=== PATIENT | female | born 1935 | race Caucasian/White ===

== ENCOUNTER 2022-09-18 05:01 | Emergency (ER) | payer MEDICARE, SELFPAY ==
--- NOTE | ~2022-09-18 | XR_ITS ---
EXAMINATION: XR hip BI 2V w AP pelvis DATE: 09/18/2022 06:22 INDICATION: Pelvic pain. Fall. TECHNIQUE: An anteroposterior view of the pelvis and 2 views of each hip were obtained. COMPARISON: None. FINDINGS: There is lumbar dextroscoliosis and severe spondylosis. No fracture. There is mild osteoart hritis of the hips. IMPRESSION: 1. Mild osteoarthritis of the hips. Reviewed, dictated and finalized at location A. MENTATIONIST
--- NOTE | ~2022-09-18 | CT_ITS ---
EXAMINATION: CT cervical spine wo con DATE: 09/18/2022 05:49 INDICATION: Head injury. Neck pain. TECHNIQUE: Computed tomography (CT) of the cervical spine was performed without intravenous contrast. Automated exposure control and iterative reconstruction technique were employed. The dose-length pro duct was 120.80 mGy-cm. COMPARISON: None FINDINGS: There is mild scarring at the lung apices. There is kyphosis of cervical spine. There is 6 degrees levocurvature of cervical spine. Vertebral body heights are normal. There is mildly decreased disc height at C3-C4 and C4 on C5, moderately decreased disc height at C5-C6, and severely decreased disc height at C6-C7 and C7-T1. The following disc levels are specifically discussed: C2-C3: There is mild right uncovertebral joint osteoarthritis. There is severe bilateral facet joint osteoarthritis. There is mild right neural foraminal stenosis. There is no central canal stenosis. C3-C4: There is mild bilateral uncovertebral joint osteoarthritis. There is severe bilateral facet tomas int osteoarthritis. There is mild bilateral neural foraminal stenosis. There is no central canal sten osis. C4-C5: There is mild left uncovertebral joint osteoarthritis. There is ankylosis of right uncovertebr al joint with moderate hypertrophy. There is mild left facet joint osteoarthritis. There is ankylosis of right facet joint with moderate hypertrophy. There is mild right neural foraminal stenosis. There is no central canal stenosis. C5-C6: There is severe right and moderate left uncovertebral joint osteoarthritis. There is mild righ t facet joint osteoarthritis. There is mild bilateral neural foraminal stenosis. There is mild centra l canal stenosis. C6-C7: There is severe right uncovertebral joint osteoarthritis. There is ankylosis of left facet hannah nt with mild hypertrophy. There is no facet joint osteoarthritis. There is mild bilateral neural fora néstor stenosis. There is mild central canal stenosis. C7-T1: There is severe bilateral uncovertebral joint osteoarthritis. There is mild bilateral facet tomas int osteoarthritis. There is mild bilateral neural foraminal stenosis. There is no central canal sten osis. IMPRESSION: 1. No fracture. 2. Severe cervical spondylosis. Reviewed, dictated and finalized at location A. CTOR DIGITAL
--- NOTE | ~2022-09-18 | CT_ITS ---
EXAMINATION: CT brain wo con DATE: 09/18/2022 05:49 INDICATION: Head injury. TECHNIQUE: Computed tomography (CT) of the head was performed without intravenous contrast. The mA wa s adjusted according to patient size. Iterative reconstruction technique was employed. The dose-lengt h product was 605.33 mGy-cm. COMPARISON: None FINDINGS: There are scattered areas of low attenuation in the cerebral white matter. There is no intr acranial hemorrhage, acute infarction, or abnormal intracranial mass lesion. The ventricles are shauna l in size. The orbits are normal. There is mild mucosal thickening in the paranasal sinuses. The mast oid air cells are normal. There is right lateral scalp soft tissue swelling. IMPRESSION: 1. Moderate nonspecific cerebral white matter disease, which likely represents chronic small vessel i schemic disease. Reviewed, dictated and finalized at location A. RUMENT CALIBRATOR IMPRESSION: 1. Moderate nonspecific cerebral white matter disease, which likely represents chronic small vessel ischemic disease.
--- NOTE | ~2022-09-18 | XR_ITS ---
EXAMINATION: XR knee LT min 4V DATE: 09/18/2022 06:22 INDICATION: Left knee pain. TECHNIQUE: 4 views of left knee were obtained. COMPARISON: None. 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 No periprosthetic lucen cy to suggest loosening or infection. No fracture. There are tiny osteophytes of patella. No knee hannah nt effusion. IMPRESSION: 1. 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 Reviewed, dictated and finalized at location A. E EXPANDER
--- NOTE | ~2022-09-18 | XR_ITS ---
EXAMINATION: XR chest 1V DATE: 09/18/2022 06:22 INDICATION: Fall. Neck pain. TECHNIQUE: A single frontal view of the chest was obtained. COMPARISON: None. FINDINGS: Calcified pulmonary nodules and calcified hilar lymph nodes are consistent with old granulo matous disease. No pleural effusion or pneumothorax. The heart size is normal. There are surgical cli ps in right abdomen. IMPRESSION: 1. No acute cardiopulmonary disease. Reviewed, dictated and finalized at location A. ESTATE TRANSACTION COORDINATOR
--- NOTE | ~2022-09-18 | XR_ITS ---
EXAMINATION: XR hand RT min 3V DATE: 09/18/2022 06:22 INDICATION: Right hand pain. TECHNIQUE: 3 views of right hand were obtained. COMPARISON: None. FINDINGS: Bone alignment is normal. No fracture. There is moderate osteoarthritis of first carpometac arpal joint, third proximal interphalangeal joint, and second and third distal interphalangeal joints . IMPRESSION: 1. Polyarticular osteoarthritis. Reviewed, dictated and finalized at location A. ATRIC DENTIST
[2022-09-18 05:06] VITALS: BP 155/72; PULSE 62; RESP 20; TEMP 36.5; O2SAT 97
--- NOTE | 2022-09-18 05:35 | PC.NURSE ---
Pt to ED via EMS from [facility] after a witnessed fall at the vest front presser. Pt fell onto her butt and hit her head on the carpet. No LOC. Pt c/o neck pain to EMS so c-collar was applied on scene. Pt is alert to self and is at mental status baseline. She has an approx 1cm laceration to right posterior scalp. Unknown if pt takes blood thinners. No med list sent and pt does not know her meds. Wound cleansed with normal saline and temporary gauze dressing applied and secured with marialuisa wrap. Pt's speech is clear, she moves all extremities equally, and follows commands.
[2022-09-18 05:41] LABS: Basophils Percent Auto 0.6 % (0.2-1.2); Eosinophils Absolute Auto 0.1 K/mm3 (0-0.3); Eosinophils Percent Auto 1.2 % (0-4.4); Hematocrit 38.3 % (37.0-47.0); Hemoglobin 12.2 g/dL (12.0-15.0); Immature Granulocyte Absolute 0.03 K/mm3 (0.00-0.031); Immature Granulocyte Percent A 0.6 % (0-0.5); Lymphocytes Absolute Auto 1.78 K/mm3 (0.9-3.2); Mean Corpuscular HGB Conc 31.9 g/dl (32-36); Mean Corpuscular Hemoglobin 33.4 pg (26-34); Mean Corpuscular Volume 104.9 fl (80-100); Mean Platelet Volume 10.8 fl (7.4-10.4); Monocytes Absolute Auto 0.4 K/mm3 (0.1-0.6); Monocytes Percent Auto 7.9 % (2.6-8.5); Neutrophils Absolute Auto 2.8 K/mm3 (1.3-6.7); Neutrophils Percent Auto 54.7 % (45.5-73.1); Platelet Count Result 159 k/mm3 (150-375); Red Blood Count 3.65 M/mm3 (4.2-5.4); Red Cell Distribution Width 14.1 % (11.5-14.5); White Blood Count 5.1 K/mm3 (4.5-10.0)
--- NOTE | 2022-09-18 05:49 | ED.FALL ---
HPI - Fall General Chief Complaint: Fall Stated Complaint: fall head trauma Time Seen by Provider: 09/18/22 05:04 Source: patient, EMS and RN notes reviewed Mode of arrival: EMS Limitations: dementia History of Present Illness HPI Narrative: This is an 87 year old female with history of dementia who presents from a facility for evaluation of a head injury. EMS reports that staff heard patient walking around so they heard her fall. They deny LOC but patient does have hematoma to her posterior scalp. EMS also reports that patient was complaining mild neck soreness so she was placed in c collar. Patient is oriented x 2 and she is at her baseline mental status. PAtient's family reports patient takes eliquis for afib. PAtient is only complaining of right finger pain. She denies headache, dizziness, nausea, chest pain or abdominal pain Related Data Allergies Allergy/AdvReac Type Severity Reaction Status Date / Time epinephrine Allergy Unknown Verified 09/18/22 06:26 latex Allergy Unknown Verified 09/18/22 06:26 oxycodone Allergy Unknown Verified 09/18/22 06:26 Penicillins Allergy Unknown Verified 09/18/22 06:26 pseudoephedrine Allergy Unknown Verified 09/18/22 06:26 [From [facility]] Review of Systems Constitutional: Constitutional: Denies weakness Cardiovascular: Cardiovascular: Denies syncope, Denies rapid heart rate, Denies irregular heart rhythm, Denies leg edema and Denies dyspnea Respiratory: Respiratory: Denies chest congestion, Denies hemoptysis, Denies excessive phlegm production and Denies dyspnea Gastrointestinal: Gastrointestinal: Denies abdominal pain, Denies hematochezia, Denies diarrhea and Denies vomiting Genitourinary: Genitourinary: Denies hematuria and Denies dysuria Musculoskeletal: Musculoskeletal: Reports arthralgias, Denies joint swelling, Denies loss of height and Denies muscle weakness Neurologic: Denies syncope, Denies focal weakness and Denies weakness [facility] Past Medical History Medical History (Updated 09/18/22 @ 07:03 by Sydnee Hemphill MD) Afib Chronic anticoagulation Exam Const: General: no acute distress and alert HENMT: Head: hematoma and laceration (right posterior hematoma with 2 cm laceration) Ears: external ears normal Face/Nose/Sinus: Normal external nose present Face and sinus: normal facial exam Throat: posterior oropharynx normal Eyes: Pupils: Equal, round and reactive pupils present EOM: EOMs intact bilaterally Neck: Other: in c colllar Chest: Chest palpation & inspection: normal inspection of the chest and no tenderness Resp: Effort & Inspection: normal respiratory effort Auscultation: clear to auscultation bilaterally Cardio: Rate: regular rate Rhythm: abnormal rhythm Heart sounds: no murmurs GI: GI Palp: Yes Soft to palpation, No Tenderness to palpation present (GI), No Guarding due to palpation present (GI) and No Rigid due to palpation Auscultation: normal bowel sounds Back/Spine/Pelvis: Cervical Spine: collar present Skin: General skin exam: normal color Rashes: no rashes Neuro: General: moves all extremities, no meningeal signs, no focal motor deficits and CN's II-XI intact bilaterally Extrem: General: normal to inspection Psych: Mental Status: mental status grossly normal Affect: normal affect Attitude: cooperative Course Vital Signs Vital signs: Vital Signs Temperature 97.7 F 09/18/22 05:06 Pulse Rate 62 09/18/22 05:06 Respiratory Rate 20 09/18/22 05:06 Blood Pressure 155/72 H 09/18/22 05:06 Pulse Oximetry 97 09/18/22 05:06 Oxygen Delivery Room Air 09/18/22 05:06 Temperature 97.7 F 09/18/22 05:06 Pulse Rate 67 09/18/22 06:19 Respiratory Rate 20 09/18/22 06:19 Blood Pressure 182/84 H 09/18/22 06:19 Pulse Oximetry 100 09/18/22 06:19 Oxygen Delivery Room Air 09/18/22 05:06 Procedures Laceration Laceration 1: Date: 09/18/22 Time: 06:59 Site: scalp Siz
[2022-09-18 05:53] LABS: INR 1.3; Prothrombin Time 15.8 Seconds (11.1-14.7)
[2022-09-18 05:55] LABS: Partial Thromboplastin Time 36.7 SECONDS (22.3-36.8)
[2022-09-18 06:01] LABS: Alanine Aminotransferase 14 U/L (6-35); Albumin Level 3.8 g/dL (3.5-5.1); Alkaline Phosphatase 64 U/L (38-126); Anion Gap 0 mmol/L (8-16); Aspartate Amino Transferase 22 U/L (14-36); Bilirubin,Total 0.7 mg/dL (0.2-1.3); Blood Urea Nitrogen 20 mg/dL (7-17); Calcium 8.7 mg/dL (8.4-10.2); Carbon Dioxide 30 mmol/L (22-30); Chloride 104 mmol/L (98-107); Estimated CRCL calculation 51 ml/min; Estimated Glomerular Filt Rate > 60; Glucose 88 mg/dL (65-110); Potassium 4.2 mmol/L (3.4-5.0); Sodium 134 mmol/L (137-145)
[2022-09-18 06:19] VITALS: BP 182/84; PULSE 67; RESP 20; O2SAT 100
--- NOTE | 2022-09-18 06:25 | PC.NURSE ---
C-collar removed at this time
--- NOTE | 2022-09-18 06:26 | PC.NURSE ---
Called [facility] to obtain allergy list.
--- NOTE | 2022-09-18 06:36 | ECG_ITS ---
Measurements Intervals [place] Rate: 67 P: 64 AK: 171 QRS: 56 QRSD: 77 T: 53 QT: 413 QTc: 437 Interpretive Statements SINUS RHYTHM WITH MARKED SINUS ARRHYTHMIA LOW QRS VOLTAGE IN EXTREMITY LEADS [QRS DEFLECTION < 0.5 mV IN LIMB LEADS] ABNORMAL ECG NO PREVIOUS ECG AVAILABLE FOR COMPARISON Electronically Signed On 10-09-2022 14:26:15 STRUCTURAL ENGINEER by Anthony Palencia M.D.
--- NOTE | 2022-09-18 07:08 | PC.NURSE ---
Nurse report given to Holly WILSON
[2022-09-18 07:41] VITALS: BP 162/88; PULSE 61; RESP 16; O2SAT 99
== END 2022-09-18 07:42 ==
PROVIDERS: Emergency Provider General Practice; PCP Emergency Medicine
DX: S01.01XA Laceration without foreign body of scalp, initial encounter (principal); F03.90 Unspecified dementia, unspecified severity, without behavioral disturbance, psychotic disturbance, mood disturbance, and anxiety; I48.91 Unspecified atrial fibrillation; Z79.01 Long term (current) use of anticoagulants; R90.82 White matter disease, unspecified; Z96.652 Presence of left artificial knee joint; M47.812 Spondylosis without myelopathy or radiculopathy, cervical region; M16.0 Bilateral primary osteoarthritis of hip; M19.041 Primary osteoarthritis, right hand; M18.9 Osteoarthritis of first carpometacarpal joint, unspecified; W19.XXXA Unspecified fall, initial encounter
CPT/HCPCS: 12001; 36415; 70450; 71045; 72125; 73130; 73521; 73564; 80053; 85025; 85610; 85730; 93005; 99284

== ENCOUNTER 2022-11-08 13:48 | Emergency (ER) | payer MEDICARE, SELFPAY ==
[2022-11-08] VITALS (15 sets, daily range): BP systolic 116–139; BP diastolic 51–68; PULSE 63–77; RESP 16; TEMP 36.9; O2SAT 97–100
--- NOTE | ~2022-11-08 | XR_ITS ---
EXAMINATION: XR forearm RT 2V DATE: 11/08/2022 14:10 INDICATION: Right forearm injury and swelling. TECHNIQUE: 2 views of right forearm were obtained. COMPARISON: None. FINDINGS: Bone alignment is normal. No fracture. There is moderate osteoarthritis of triscaphe joint and first carpometacarpal joint. No elbow joint effusion. IMPRESSION: 1. No fracture. Reviewed, dictated and finalized at location A. INTERFACE ANALYST IMPRESSION: 1. No fracture.
--- NOTE | ~2022-11-08 | CT_ITS ---
EXAMINATION: CT forearm RT wo con DATE: 11/08/2022 15:07 INDICATION: Right forearm hematoma TECHNIQUE: Computed tomography (CT) of the right forearm was performed without intravenous contrast. The dose-length product (DLP) was 956.40 mGy-cm. Automated exposure control and iterative reconstruct ion technique were employed. COMPARISON: None FINDINGS: There is diffuse ventral soft tissue swelling of the forearm. There is an approximately 2.3 x 2.0 x 4.8 cm hematoma in the subcutaneous tissues overlying the distal third of the forearm. No un derlying osseous abnormality is identified. IMPRESSION: 1. Soft tissue swelling and hematoma of the right forearm without acute osseous abnormality. Reviewed, dictated and finalized at location F. EL PAINTER
--- NOTE | 2022-11-08 13:58 | ED.EXTPRO ---
HPI - Extremity Problem General Chief complaint: Extremity Problem,Nontraumatic Stated complaint: right wrist swelling Time Seen by Provider: 11/08/22 13:49 History of Present Illness HPI Narrative: Patient is a 7-year-old female sent in from the nursing facility due to evaluation of right forearm bruising and swelling. This was noticed today during the past. Patient denies significant pain at the wrist and denies obvious injury although she does have a history of dementia. No decreased range of motion of the wrist. She does take Eliquis. Related Data Allergies Allergy/AdvReac Type Severity Reaction Status Date / Time epinephrine Allergy Unknown Verified 09/18/22 06:26 latex Allergy Unknown Verified 09/18/22 06:26 oxycodone Allergy Unknown Verified 09/18/22 06:26 Penicillins Allergy Unknown Verified 09/18/22 06:26 pseudoephedrine Allergy Unknown Verified 09/18/22 06:26 [From [facility]] Review of Systems Review of Systems: Gen: Denies fevers or chills Eyes: Denies eye pain or visual change ENT: Denies congestion Respiratory: Denies shortness of breath or cough CV: Denies chest pain or palpitations GI: Denies abdominal pain nausea, emesis or diarrhea denies burning, urgency, frequency or hematuria Musculoskeletal: Reports right wrist pain Neuro: Denies numbness, tingling, weakness or focal weakness Skin: Reports bruising and swelling at the wrist Except as documented, all other systems reviewed and negative PMFSH Past Medical History Medical History Afib Chronic anticoagulation Exam Narrative: APPEARANCE: Well appearing, no pain in distress, well-nourished. Head: Normocephalic and atraumatic. EYES: PERRLA/EOMI, conjunctivae clear NOSE: No nasal drainage EARS: External ear normal in appearance THROAT: Oropharynx is clear. Mucous membranes are moist. NECK: Supple. No adenopathy, no masses. RESPIRATORY: Airway patent, respirations nonlabored. Clear to auscultation bilaterally, no rales, rhonchi, wheezing. CARDIOVASCULAR: Regular rate and rhythm without murmurs, rubs, or gallops. ABDOMINAL: Normoactive bowel sounds. Soft, nontender, nondistended. No rebound tenderness or guarding. MUSCULOSKELETAL: Patient has deeply purple discoloration to a circumferential area of her right forearm with a large hematoma palpated at the dorsum of her forearm that is tender to palpation. Full range of motion of the wrist. NEURO: Normal speech. No focal neurologic deficits. SKIN: Skin is warm and dry. No rashes. PSYCHIATRIC: Normal affect/mood.. Course Vital Signs Vital signs: Vital Signs Temperature 98.4 F 11/08/22 13:48 Pulse Rate 63 11/08/22 13:48 Respiratory Rate 16 11/08/22 13:48 Blood Pressure 116/57 L 11/08/22 13:48 Pulse Oximetry 97 11/08/22 13:48 Temperature 98.4 F 11/08/22 13:48 Pulse Rate 74 11/08/22 14:32 Respiratory Rate 16 11/08/22 14:32 Blood Pressure 122/58 L 11/08/22 14:32 Pulse Oximetry 100 11/08/22 14:32 MDM - Extremity (Nontraumatic) MDM Narrative Medical decision making narrative: 87-year-old female here for evaluation of a hematoma to her right forearm that has been there for an unknown amount of time, sent to the nursing facility when he noticed it today. She does have a large hematoma on exam but no signs of neurovascular compromise distal to the area. Plain films of the forearm with no acute findings or fractures and CT chest confirms findings of the hematoma without any underlying bony disease. Patient herself has no complaints. She was placed in Martin wrap, advised icing as needed. Discharge Plan Discharge Clinical Impression: Traumatic hematoma of right forearm Patient Disposition: [facility] Condition: Stable Instructions: Antibiotic Form, Hematoma (ED) Additional Instructions: The x-ray shows no fractures and CT of your forearm shows a hematoma. Please use com
== END 2022-11-08 17:18 ==
PROVIDERS: Emergency Provider Physician Assistant; PCP Emergency Medicine
DX: S50.11XA Contusion of right forearm, initial encounter (principal); I48.91 Unspecified atrial fibrillation; Z79.01 Long term (current) use of anticoagulants; X58.XXXA Exposure to other specified factors, initial encounter
CPT/HCPCS: 73090; 73200; 99284

== ENCOUNTER 2023-01-03 05:12 | Emergency (ER) | payer MEDICARE, SELFPAY ==
[2023-01-03] VITALS (9 sets, daily range): BP systolic 106–142; BP diastolic 45–70; PULSE 72–97; RESP 14–16; TEMP 36.3–37.3; O2SAT 94–100
--- NOTE | ~2023-01-03 | XR_ITS ---
EXAMINATION: XR ankle RT min 3V DATE: 01/03/2023 07:05 INDICATION: Right ankle pain and hematoma. All TECHNIQUE: Anteroposterior, oblique, mortise, and lateral views of the right ankle were obtained. COMPARISON: None. FINDINGS: Alignment is normal. There is indistinct cortical margin at the tip of the medial malleolus with a co uple tiny adjacent flecks of calcium consistent with a tiny avulsion fracture at the insertion of the deltoid ligament. Associated soft tissue swelling about the medial ankle and medial aspect of the di stal calf. No other fractures identified. Mild osteoarthritis at a few of the joints in the mid and f orefoot. No ankle joint effusion. IMPRESSION: 1. Tiny flake-like cortical avulsion fracture at the tip of the medial malleolus. Reviewed, dictated and finalized at location A. IMPRESSION: 1. Tiny flake-like cortical avulsion fracture at the tip of the medial malleolu s.
--- NOTE | ~2023-01-03 | XR_ITS ---
EXAMINATION: XR knee RT min 4V, XR hip RT 2V w AP pelvis, XR femur RT min 2V DATE: 01/03/2023 07:05 INDICATION: Right lower limb pain and bruising post fall TECHNIQUE: 1. AP view of the pelvis and AP and frog-leg lateral views of the right hip were obtained. 2. AP and lateral views of the right femur were obtained on overlapping proximal and distal images. 3. AP, 2 oblique and crosstable lateral views of the right knee were obtained COMPARISON: None. FINDINGS: Alignment is normal. No fracture. Mild osteoarthritis at the bilateral hip and sacroiliac joints. Milly int space at the right knee appear normal on nonweightbearing imaging. No right knee joint effusion. Severe lower lumbar spondylosis. Soft tissue swelling about the medial aspect of the knee and distal thigh. IMPRESSION: 1. No acute osseous abnormality Reviewed, dictated and finalized at location A. IMPRESSION: 1. No acute osseous abnormality IMPRESSION: 1. No acute osseous abnormality
--- NOTE | 2023-01-03 05:49 | ED.LOWEXIN ---
HPI - Extremity Injury (Lower) General Chief Complaint: Extremity Injury, Lower <Jade Mercado MD - Last Filed: 01/04/23 00:15> Stated Complaint: hematoma <Jade Mercado MD - Last Filed: 01/04/23 00:15> Time Seen by Provider: 01/03/23 05:43 <Jade Mercado MD - Last Filed: 01/04/23 00:15> History of Present Illness HPI Narrative: Patient is an 87-year-old female presenting with bruising to her right leg. Patient is coming from a nursing facility. She was noted to have bruising and swelling of the right thigh so EMS was called. No further history was provided from the nursing facility. Patient states that she has some pain in her right thigh but she otherwise denies complaints. She does have a history of underlying dementia. <Jade Mercado MD - Last Filed: 01/04/23 00:15> Related Data Allergies/Adverse Reactions: Allergies Allergy/AdvReac Type Severity Reaction Status Date / Time epinephrine Allergy Unknown Verified 01/03/23 06:28 latex Allergy Unknown Verified 01/03/23 06:28 oxycodone Allergy Unknown Verified 01/03/23 06:28 Penicillins Allergy Unknown Verified 01/03/23 06:28 pseudoephedrine Allergy Unknown Verified 01/03/23 06:28 [From [facility]] <Jade Mercado MD - Last Filed: 01/04/23 00:15> Review of Systems Review of Systems: ROS unobtainable: Yes other (underlying dementia) <Jade Mercado MD - Last Filed: 01/04/23 00:15> [facility] Past Medical History Medical History: Medical History Afib Chronic anticoagulation <Jade Mercado MD - Last Filed: 01/04/23 00:15> Exam Narrative: GENERAL: Well-appearing, well-nourished, and in no acute distress. HEAD: Normocephalic, atraumatic. EYES: PERRLA and EOMI. ENT: Nares clear, no rhinorrhea or epistaxis. Mucous membranes moist. NECK: Supple. CHEST: Clear to auscultation. No respiratory distress. HEART: Regular rate and rhythm. No murmur heard. Normal peripheral pulses. ABDOMEN: Soft, nontender, nondistended, normal active bowel sounds. EXTREMITIES: Normal range of motion. extensive purple ecchymoses along lateral aspect of R lower extremity; there is a hematoma on the lateral midthigh; distal pulses are 2+ SKIN: Warm, dry, no rash. NEURO: No focal deficits. Alert and oriented x1 PSYCH: Normal mood and affect. <Jade Mercado MD - Last Filed: 01/04/23 00:15> Course Reevaluation(s) Reevaluation #1: Patient care was signed out to me by Dr. Mercado with imaging pending. Ankle showed a small medial malleolar avulsion fracture. Knee x-ray pelvis x-ray femur x-ray showed no acute fracture or dislocation. Patient has underlying dementia and was resting comfortably. Patient's family was updated on the results of the imaging and plan for close follow-up with orthopedics. All question concerns were addressed patient does use a walker and wheelchair for ambulation primarily. <Jovanni Cobos MD - Last Filed: 01/03/23 18:11> Vital Signs Vital signs: Vital Signs Temperature 99.2 F 01/03/23 05:13 Pulse Rate 97 01/03/23 05:13 Respiratory Rate 16 01/03/23 05:13 Blood Pressure 142/61 H 01/03/23 05:13 Pulse Oximetry 94 01/03/23 05:13 Oxygen Delivery Room Air 01/03/23 05:13 Temperature 97.3 F L 01/03/23 10:00 Pulse Rate 72 01/03/23 10:00 Respiratory Rate 14 01/03/23 10:00 Blood Pressure 106/68 01/03/23 10:00 Pulse Oximetry 97 01/03/23 10:00 Oxygen Delivery Room Air 01/03/23 05:13 <Jade Mercado MD - Last Filed: 01/04/23 00:15> Vital Signs Temperature 99.2 F 01/03/23 05:13 Pulse Rate 97 01/03/23 05:13 Respiratory Rate 16 01/03/23 05:13 Blood Pressure 142/61 H 01/03/23 05:13 Pulse Oximetry 94 01/03/23 05:13 Oxygen Delivery Room Air 01/03/23 05:13 Temperature 97.3 F L 01/03/23 10:00 Pulse Rate 72 01/03/23 10:00 Respiratory Rate 14
[2023-01-03 06:14] LABS: Basophils Percent Auto 0.3 % (0.2-1.2); Eosinophils Percent Auto 0.2 % (0-4.4); Hematocrit 32.8 % (37.0-47.0); Immature Granulocyte Absolute 0.06 K/mm3 (0.00-0.031); Immature Granulocyte Percent A 0.6 % (0-0.5); Lymphocytes Absolute Auto 0.73 K/mm3 (0.9-3.2); Mean Corpuscular HGB Conc 33.5 g/dl (32-36); Mean Corpuscular Hemoglobin 33.7 pg (26-34); Mean Corpuscular Volume 100.6 fl (80-100); Mean Platelet Volume 10.1 fl (7.4-10.4); Monocytes Absolute Auto 0.7 K/mm3 (0.1-0.6); Neutrophils Absolute Auto 8.8 K/mm3 (1.3-6.7); Neutrophils Percent Auto 84.9 % (45.5-73.1); Platelet Count Result 141 k/mm3 (150-375); Red Blood Count 3.26 M/mm3 (4.2-5.4); Red Cell Distribution Width 13.4 % (11.5-14.5); White Blood Count 10.4 K/mm3 (4.5-10.0)
--- NOTE | 2023-01-03 06:15 | PC.NURSE ---
This nurse changed pt from an extremely saturated brief. Performed truman care on pt.
--- NOTE | 2023-01-03 06:23 | PC.NURSE ---
Pt POA called to get an update on pt. Informed pt family about the report EMS had given, the magnitude of pt. injury, and the saturation of pt. brief upon arrival. Pt POA stated that she would like updates about pt. throughout her stay before she arrives. Pt POA also stated that she would be up soon, and can take pt. back to the [facility] in [place] and would not need an ambulance back for transport. Patricia is the POA and her number is [phone].
[2023-01-03 06:32] LABS: INR 1.1; Prothrombin Time 14.1 Seconds (11.1-14.7)
[2023-01-03 06:41] LABS: Partial Thromboplastin Time 32.7 SECONDS (22.3-36.8)
--- NOTE | 2023-01-03 10:16 | PC.NURSE ---
report to Brigitte at [facility]
== END 2023-01-03 10:26 ==
PROVIDERS: Emergency Provider Emergency Medicine; PCP Emergency Medicine
DX: S82.51XA Displaced fracture of medial malleolus of right tibia, initial encounter for closed fracture (principal); S70.11XA Contusion of right thigh, initial encounter; I48.91 Unspecified atrial fibrillation; Z79.01 Long term (current) use of anticoagulants; X58.XXXA Exposure to other specified factors, initial encounter
CPT/HCPCS: 29515; 36415; 73502; 73552; 73564; 73610; 85025; 85610; 85730; 99284